=== PATIENT | male | born 1950 | race Two or more races ===

== ENCOUNTER 2021-08-24 05:30 | Emergency (ER) | payer OTHER ==
[~2021-08-24] VITALS: Ht 188 cm; Wt 86.2 kg
[2021-08-24 05:40] VITALS: BP 169/99
--- NOTE | 2021-08-24 05:43 | NUR ---
TO LOBBY A/W BED AMBULATORY
[2021-08-24] MEDS ORDERED: CEPH250C16 PO (08:13)
[2021-08-24] MEDS ORDERED: TAMS0.4C96 PO (08:13)
--- NOTE | 2021-08-24 08:38 | NUR ---
Patient discharged with v/s stable. Written and verbal after care instructions INDWELLING URINARY CATHETER CARE AND URINARY TRACT INFECTION given and explained. Patient alert, oriented and verbalized understanding of instructions. Ambulatory with steady gait. All questions addressed prior to discharge. ID band removed. Patient advised to follow up with PMD. Rx of CEPHALEXIN, FLOMAX given. Patient educated on indication of medication including possible reaction and side effects. Opportunity to ask questions provided and answered.
[2021-08-24 23:10] LABS: APPEARANCE,URINE CLOUDY (CLEAR); BILIRUBIN,URINE NEGATIVE (NEGATIVE); BLOOD, URINE 3+ (NEGATIVE); COLOR,URINE YELLOW (YELLOW); LEUKOCYTE ESTERASE ,URINE 3+ (NEGATIVE); NITRITE, URINE POSITIVE (NEGATIVE); PH,URINE 7.5 (5.0-9.0); UGLUCOSE NEGATIVE (NEGATIVE)
[2021-08-24 23:55] LABS: WBC,URINE TOO MANY TO COUNT /HPF (0-5)
== END 2021-08-24 08:38 | disposition home or self-care (01) ==
LOC: MED 05:30
DX: R33.9 Retention of urine, unspecified (principal); N39.0 Urinary tract infection, site not specified; Z79.899 Other long term (current) drug therapy
CPT/HCPCS: 51702; 81001; 87086; 99284